=== PATIENT | female | born 1995 | race African-American/Black ===

== ENCOUNTER 2017-12-02 15:17 | Emergency (ER) | payer SELFPAY ==
[~2017-12-02] VITALS: Ht 154.9 cm; Wt 49.4 kg
[2017-12-02 16:07] VITALS: BP 116/73
== END 2017-12-02 18:23 | disposition home or self-care (01) ==
LOC: ER 15:17
DX: J40 Bronchitis, not specified as acute or chronic (principal); N39.0 Urinary tract infection, site not specified
CPT/HCPCS: 87400; 87804